=== PATIENT | male | born 1975 | race Caucasian/White ===

== ENCOUNTER 2021-03-18 17:58 | Emergency (ER) | payer BC ==
[2021-03-18] MEDS ORDERED: Ketorolac 60 MG/2 ML SDV IM ONE (18:29)
--- NOTE | 2021-03-18 18:30 | EDM.PDOC ---
ED HPI GENERAL MEDICAL PROBLEM - General Chief Complaint: Chest Pain Stated Complaint: SLIPPED ON ICE Time Seen by Provider: 03/18/21 17:58 Source of Information: Reports: Patient History Limitations: Reports: No Limitations - History of Present Illness INITIAL COMMENTS - FREE TEXT/NARRATIVE: HISTORY AND PHYSICAL: History of present illness: The patient is a 45-year-old male who presents to the emergency department with complaints of posterior mid left back pain after falling backwards on the ice earlier today. The patient states that he did not strike his head and he did not lose consciousness. The patient states that he got up and walked and got into his 's car and at that point felt little lightheaded. Stated that lasted for about 25 minutes and then passed. The patient is concerned Saturday fractured ribs as this is the type of pain he had previously when he fractured his rib. In the ER the patient's SPO2 is 95%. The patient did not take any medications prior to arrival. Patient denies any fever, chills, headache, change in vision, syncope or near syncope. Denies any chest pain, back pain, shortness of breath or cough. Denies any abdominal pain, nausea, vomiting, diarrhea, constipation or dysuria. Has not noted any blood in urine or stool. Patient has been eating and drinking appropriately. Review of systems: As per history of present illness and below otherwise all systems reviewed and negative. Past medical history: As per history of present illness and as reviewed below otherwise noncontributory. Surgical history: As per history of present illness and as reviewed below otherwise noncontributory. Social history: See social history for further information Family history: As per history of present illness and as reviewed below otherwise noncontributory. Physical exam: General: Well developed and well nourished. Alert and orientated x 3. Nontoxic in appearance and in no acute distress. Vital signs are stable and have been reviewed by me. Nursing notes were reviewed. HEENT: Atraumatic, normocephalic, pupils equal and reactive bilaterally, negative for conjunctival pallor or scleral icterus, mucous membranes moist, TMs normal bilaterally, throat clear, neck supple, nontender, trachea midline. No drooling or trismus noted. No meningeal signs. No hot potato voice noted. Lungs: Clear to auscultation bilaterally. No wheezes, rales, or rhonchi. Chest nontender. Normal work of breathing, no accessory muscles used. Heart: S1S2, regular rate and rhythm without overt murmur, gallops, or rubs. No JVD. No peripheral edema Abdomen: Soft, nondistended, nontender. Normoactive bowel sounds. Negative for masses or costovertebral tenderness. Back: Neck and back have no deformities, external skin changes, or signs of trau ma. Curvature of the cervical, thoracic, and lumbar spine are within normal limits. Bony features of the shoulders and hips are of equal height bilaterally. Posture is upright, gait is smooth, steady, and within normal limits. No tenderness is noted on palpation of the spinous processes. Spinous processes are midline. Cervical, thoracic, and lumbar paraspinal muscles are not tender and are without spasm.No discomfort is noted with flexion, extension, and [id number] rotation of the cervical spine, full range of motion is noted. Full range of motion including flexion, extension, and [id number]-sg-oimu rotation of the thoracic and lumbar spine are noted and without discomfort. Tenderness left mid back. No discoloration or swelling noted Skin: Intact, warm, dry. No lesions or rashes noted. Hematologic: No petechiae or purpra. Mucosa appropriate color and normal nail bed color and refill. Extremities: Atraumatic, moves all extremities per self without difficulty or deficits, negative for cords or calf pain. Neurovascular unremarkable. Neuro: Awake, alert, oriented. Cranial nerves II through XII unremarkable. Cerebellum unremarkable. Motor and sensory unremarkable throughout. Exam nonfoca l. Psychiatric: Mood and affect are appropriate. Normal thought process. Answering questions appropriately. Notes: *This patient was seen and evaluated during the 2019 SARS-CoV-2 novel coronavirus pandemic period. Community viral transmission is ongoing at time of this encounter and the emergency department is operating under pandemic response procedures. As stated above the patient is a 45-year-old male who slipped on the ice today falling backwards striking his left side of his mid back. Patient started having some pain and became lightheaded when he was got up and went to his 's car. That seemed past. Patient did not lose consciousness and did not strike his head. The patient has no other injuries. The patient is concerned as this is the type of pain he had with a previous rib fracture. I will treat the patient pain with Toradol. Will order a chest x-ray. The patient is agreeable with this plan. Chest x-ray IMPRESSION: No acute disease. I informed the patient of the negative x-ray. The patient does not need a work note and does not need any pain medication. The patient states he will just use Motrin or Tylenol. I informed the patient of when he would need to return to the emergency room to follow-up with his primary care provider. The patient is agreeable with this discharge plan. I have talked with the patient about today's findings, in addition to providing specific details for plan of care. Reassessment at the time of disposition demonstrates that the patient is in no acute distress. The patient is stable for discharge, counseling was provided and we discussed in great detail signs and symptoms that would prompt them to return to the Emergency Department. Medication, follow up and supportive care measures were reviewed and discussed. Voices understanding and is agreeable to plan of care. Denies any further questions or concerns at this time. Diagnostics: EKG, chest x-ray Therapeutics: Toradol Impression: Contusion Plan: 1. You were evaluated today on an emergent basis. Your left posterior rib pain was evaluated with an exam which did not show any kind of bruising or swelling. Your chest x-ray did not show any abnormalities no fractures of the ribs. As we talked about you could follow-up with your primary care if your pain persist and order another x-ray to see if there could be possible healing. If you become short of breath or start to have a cough or chest congestion please return to the emergency department or to your primary care as you might need further treatment. You can use Tylenol or Motrin for pain. He could also use ice or warmth whichever makes you feel better. Your EKG was normal. 2. You can alternate Tylenol and ibuprofen as needed for pain and fever management. 3. We encourage you to follow up with your primary care provider and/or recommended specialist in the next few days for re-evaluation and further care/management. 4. If your symptoms should worsen, new symptoms develop or any of the signs and symptoms we discussed should arise please return to the emergency room or call 911 (if needed). Definitive disposition and diagnosis as appropriate pending reevaluation and review of above. Left Chest Pain Score (Numeric/FACES): 8 - Related Data Allergies Allergy/AdvReac Type Severity Reaction Status Date / Time No Known Allergies Allergy Verified 03/18/21 18:06 Home Meds: Home Meds Budesonide/Formoterol [Symbicort 160-4.5 MCG] 1 dose PO DAILY 03/18/21 [History] Esomeprazole [NexIUM] 1 dose PO DAILY 03/18/21 [History] PARoxetine [Paxil] 1 dose PO DAILY 03/18/21 [History] Past Medical History - Past Surgical History Other HEENT Surgeries/Procedures: Metal plate in head Social & Family History - Recreational Drug Use Recreational Drug Use: No ED ROS GENERAL - Review of Systems Review Of Systems: Comprehensive ROS is negative, except as noted in HPI. ED EXAM, GENERAL - Physical Exam Exam: See Below (See dictation) Course - Vital Signs Last Recorded V/S: Last Vital Signs Temp 96.9 F 03/18/21 18:08 Pulse 71 03/18/21 18:08 Resp 17 03/18/21 18:08 BP 109/72 03/18/21 18:08 Pulse Ox 95 03/18/21 18:08 - Orders/Labs/Meds Meds: Medications Discontinued Medications Generic Name Dose Route Start Last Admin Trade Name Freq PRN Reason Stop Dose Admin Ketorolac Tromethamine 60 mg 03/18/21 18:29 03/18/21 18:36 Ketorolac 60 Mg/2 Ml Sdv IM 03/18/21 18:30 60 mg ONETIME ONE Administration Departure - Departure Time of Disposition: 19:39 Disposition: Home, Self-Care 01 Condition: Good Clinical Impression: Contusion Qualifiers: Encounter type: initial encounter Contusion area: thoracic wall Front or back of thoracic wall: back Thoracic wall location detail: left Qualified Code(s): S20.222A - Contusion of left back wall of thorax, initial encounter - Discharge Information *PRESCRIPTION DRUG MONITORING PROGRAM REVIEWED*: Not Applicable *COPY OF PRESCRIPTION DRUG MONITORING REPORT IN PATIENT MEDHAT: Not Applicable Instructions: Contusion, [id number] Referrals: PCP,None [Primary Care Provider] - Forms: ED Department Discharge Additional Instructions: The following information is given to patients seen in the emergency department who are being discharged to home. This information is to outline your options for follow-up care. We provide all patients seen in our emergency department with a follow-up referral. The need for follow-up, as well as the timing and circumstances, are variable depending upon the specifics of your emergency department visit. If you don't have a primary care physician on staff, we will provide you with a referral. We always advise you to contact your personal physician following an emergency department visit to inform them of the circumstance of the visit and for follow-up with them and/or the need for any referrals to a consulting specialist. The emergency department will also refer you to a specialist when appropriate. This referral assures that you have the opportunity for follow-up care with a specialist. All of these measure are taken in an effort to provide you with optimal care, which includes your follow-up. Under all circumstances we always encourage you to contact your private physician who remains a resource for coordinating your care. When calling for follow-up care, please make the office aware that this follow-up is from your recent emergency room visit. If for any reason you are refused follow-up, please contact the [facility] Emergency Department at and asked to speak to the emergency department charge nurse. [facility] [address] [place] [address] [place] [address] Plan: 1. You were evaluated today on an emergent basis. Your left posterior rib pain was evaluated with an exam which did not show any kind of bruising or swelling. Your chest x-ray did not show any abnormalities no fractures of the ribs. As we talked about you could follow-up with your primary care if your pain persist and order another x-ray to see if there could be possible healing. If you become short of breath or start to have a cough or chest congestion please return to the emergency department or to your primary care as you might need further treatment. You can use Tylenol or Motrin for pain. He could also use ice or warmth whichever makes you feel better. Your EKG was normal. 2. You can alternate Tylenol and ibuprofen as needed for pain and fever management. 3. We encourage you to follow up with your primary care provider and/or recommended specialist in the next few days for re-evaluation and further care/management. 4. If your symptoms should worsen, new symptoms develop or any of the signs and symptoms we discussed should arise please return to the emergency room or call 911 (if needed). Sepsis Event Note (ED) - Evaluation Sepsis Screening Result: No Definite Risk - Focused Exam Vital Signs: Vital Signs Temp Pulse Resp BP Pulse Ox 03/18/21 18:08 96.9 F 71 17 109/72 95
--- NOTE | 2021-03-18 19:06 | PCM.EKG ---
#1 Interpretation EKG Interpretation Comments: EKG done Mar 18, 2021 at 6:39 PM sinus rhythm heart rate 68 IA 175 QT duration 391 axis -1. QRS consistent with right bundle branch block. ST changes consistent with repull consistent with same no prior for comparison impression right bundle branch block no obvious acute injury.
--- NOTE | 2021-03-18 19:22 | CR ---
HISTORY: Fall. TECHNIQUE: Two views of the chest. COMPARISON: No prior. FINDINGS: The heart size is upper limits of normal. No pulmonary vascular congestion. There is no acute lung infiltrate or pulmonary edema. No pneumothorax or pleural effusion. No acute bony abnormality. IMPRESSION: No acute disease. Dictated by Rashad Rivera MD @ 03/18/2021 7:21:03 PM (Electronically Signed)
== END 2021-03-18 19:45 | disposition home or self-care (01) ==
LOC: MW.ED 17:58
DX: S20.222A Contusion of left back wall of thorax, initial encounter (principal); W00.0XXA Fall on same level due to ice and snow, initial encounter
CPT/HCPCS: 71046; 93005; 96372; 99283; J1885